=== PATIENT | male | born 1975 | race African-American/Black ===

== ENCOUNTER 2019-12-06 13:16 | Emergency (ER) | payer MEDICAID ==
[~2019-12-06] VITALS: Ht 175.3 cm; Wt 66.0 kg
[2019-12-06 13:41] VITALS: BP 124/97
== END 2019-12-06 13:55 | disposition left against medical advice (07) ==
LOC: ER 13:29
DX: Z00.00 Encounter for general adult medical examination without abnormal findings (principal); F43.10 Post-traumatic stress disorder, unspecified; Z86.73 Personal history of transient ischemic attack (TIA), and cerebral infarction without residual deficits
CPT/HCPCS: 99283